=== PATIENT | female | born 1990 | race Caucasian/White ===

== ENCOUNTER → 2017-02-08 | Outpatient (CLI) | payer BC ==
[~2017-02-08] MED LIST: LO LOESTRIN FE1 EACH PO
== END | disposition disaster alternative care site (69) ==
LOC: GPOC 02-03 15:00 → GRAD 13:10 → GPOC 14:00
PROC: 0G9G3ZX Drainage of Left Thyroid Gland Lobe, Percutaneous Approach, Diagnostic (ICD-10-PCS; principal; 2017-02-08)
DX: E04.1 Nontoxic single thyroid nodule (principal)